=== PATIENT | female | born 2005 | race Caucasian/White ===

== ENCOUNTER 2025-01-09 00:22 | Emergency (ER) | payer OTHER, SELFPAY ==
--- NOTE | 2025-01-09 00:42 | DI.RAD.S_ITS ---
PROCEDURE: XR ANKLE LT MIN 3V INDICATIONS: twisted ankle with swelling and bruising TECHNIQUE: 3 views of the ankle were acquired. COMPARISON: None. FINDINGS: Bones: No acute fractures or dislocations. Ankle mortise is normally aligned. No suspicious bony lesions. Soft tissues: Soft tissue edema surrounding the ankle. IMPRESSION: No acute osseous abnormality. If there is continued clinical concern or persistent symptoms, repeat radiographs or cross-sectional imaging (e.g. CT, MRI) may be helpful for further evaluation. Approved by: Ad Augustin M.D. on 01/09/2025 at 1:19
[2025-01-09 00:43] VITALS: BP 158/65; PULSE 95; RESP 16; TEMP 36.8; O2SAT 100; BMI 25.0
[2025-01-09 00:50] VITALS: PULSE 124; O2SAT 99
[2025-01-09 01:00] VITALS: PULSE 96; O2SAT 100
--- NOTE | 2025-01-09 01:12 | ED.LOWEXIN ---
HPI - Extremity Injury (Lower) General Chief Complaint: Extremity Injury, Lower Stated Complaint: L Ankle Injury Time Seen by Provider: 01/09/25 00:59 Source: patient Mode of arrival: Ambulatory History of Present Illness HPI Narrative: 19-year-old female injured her left ankle playing volleyball yesterday, has been using crutches, police up like brace, still having pain and swelling, was concerned about possible fracture, requesting imaging. No other injuries recalled. No previous left ankle injuries or surgeries. Related Data Allergies Allergy/AdvReac Type Severity Reaction Status Date / Time No Known Drug Allergies Allergy Verified 01/09/25 00:43 Patient History Smoking Status: Current every day smoker tobacco type: vaping Exam Narrative Exam Narrative: HEAD: Atraumatic. Normocephalic. EYES: Pupils equal round, conjugate gaze, white sclerae. ENT: No obvious anterior facial injuries NECK: Trachea midline. Moves neck well, normal phonation EXTREMITIES: Swelling with tenderness bilateral ankle, without gross deformity, some dependent ecchymoses medial and lateral toward the heel edge both sides. Good DP pulse. BACK: Nontender without deformity or crepitance. No flank tenderness. NEURO: AOx3. Motor functions grossly nonfocal. SKIN: No rash or erythema of visible areas Initial Vital Signs Initial Vital Signs: Vital Signs Temperature 98.2 F 01/09/25 00:43 Pulse Rate 95 H 01/09/25 00:43 Respiratory Rate 16 01/09/25 00:43 Blood Pressure 158/65 H 01/09/25 00:43 Pulse Oximetry 100 01/09/25 00:43 Oxygen Delivery Method Room Air 01/09/25 00:43 Course Orders Ordered: ED Orders 01/09/25 00:42 XR ankle LT min 3V Stat Vital Signs Vital signs: Vital Signs - 8 hr 01/09/25 00:43 01/09/25 00:50 01/09/25 01:00 Temperature 98.2 F Pulse Rate 95 H 124 H 96 H Respiratory Rate 16 Blood Pressure 158/65 H Pulse Oximetry 100 99 100 Oxygen Delivery Method Room Air 01/09/25 01:30 Temperature Pulse Rate 84 Respiratory Rate Blood Pressure Pulse Oximetry 100 Oxygen Delivery Method MDM - Extremity Injury (Lower) Imaging Data Extremity x-ray #1: Radiologist's Impression: [address] [address] XRay Report Signed Patient: Jenny Wilhelm MR#: [id number] : 2005 Acct:[id number] Age/Sex: 19 / F Date of Service: 01/09/25 Loc: ED Accession Number: [id number] Procedure: XR ankle LT min 3V Ordering Provider: Allen Turcios MD PROCEDURE: XR ANKLE LT MIN 3V INDICATIONS: twisted ankle with swelling and bruising TECHNIQUE: 3 views of the ankle were acquired. COMPARISON: None. FINDINGS: Bones: No acute fractures or dislocations. Ankle mortise is normally aligned. No suspicious bony lesions. Soft tissues: Soft tissue edema surrounding the ankle. IMPRESSION: No acute osseous abnormality. If there is continued clinical concern or persistent symptoms, repeat radiographs or cross-sectional imaging (e.g. CT, MRI) may be helpful for further evaluation. Approved by: Ad Augustin M.D. on 01/09/2025 at 1:19 MDM Narrative Medical decision making narrative: Follow up all injury left ankle pain and swelling with ecchymoses toward the heel. X-ray series left ankle from triage showed no obvious fracture, see radiology report. Copy of the report given to patient. Patient has been using crutches and lace-up ankle support device. Jimmy wrap applied, with walking boot additional support immobilization. Continue nonweightbearing with use of crutches advised. [place], given contact information for office of Dr. Anderson orthopedic surgery. Advised use [id number] NSAIDs as needed. Rest ice elevation and compression. Return precautions discussed. Discharged home with friends. Discharge Plan Departure Patient Disposition: Home Clinical Impression: Ankle sprain and strain Instructions: DI for Ankle Sprain Activity Restrictions/Additional Instructions: Ankle injury playing volleyball, with swelling and some bruising. X-rays without obvious fracture. Lace-up support had been use, with crutches. Continue crutches and nonweightbearing for now. We will apply Jimmy wrap for compression, and then immobilized further in walking boot for now. Do not walk on the walking boot at this time. Recheck with your regular providers in next couple of days, hopefully swelling would be going down, to see if you can be assessed for weight-bearing activities as tolerated at that time. Do not place weight on your left ankle until recheck/clearance, re-evaluate in clinic setting in 2 days to see if any weight-bearing activity is appropriate at that time. Contact information also provided for orthopedic surgery Dr. Anderson, if you choose to have orthopedic surgery follow up. Call her office on Friday for follow up if he chooses to follow up with Orthopedic surgery. Referrals: Portia Anderson MD [Physician] - Stand Alone Forms: Patient Portal/API/Survey, Work Release Note
[2025-01-09 01:30] VITALS: PULSE 84; O2SAT 100
== END 2025-01-09 02:02 | disposition home or self-care (01) ==
PROVIDERS: Emergency Provider Emergency Medicine
DX: S93.402A Sprain of unspecified ligament of left ankle, initial encounter (principal); X58.XXXA Exposure to other specified factors, initial encounter; Y93.68 Activity, volleyball (beach) (court)
CPT/HCPCS: 29580; 73610; 99281; 99283

== ENCOUNTER 2025-06-26 18:52 | Emergency (ER) | payer OTHER, SELFPAY ==
[2025-06-26] VITALS (9 sets, daily range): BP systolic 102–116; BP diastolic 50–101; PULSE 57–77; RESP 16–17; TEMP 36.6; O2SAT 98–100; BMI 25.0
--- NOTE | 2025-06-26 21:29 | DI.CT.S_ITS ---
PROCEDURE: CT ABDOMEN PELVIS W CON INDICATIONS: right lower abdominal pain TECHNIQUE: After the administration of intravenous contrast, axial sections acquired from the lung bases to the pubic symphysis. Coronal and sagittal reformats were performed. For radiation dose reduction, the following was used: automated exposure control, adjustment of mA and/or kV according to patient size. COMPARISON: None. FINDINGS: Image quality: Diagnostic. Lower Chest: No significant findings. ABDOMEN: Liver: No solid mass. Gallbladder: No radiopaque gallstones or wall thickening. Biliary ducts: No biliary dilation. Pancreas: No ductal dilation. Spleen: Size is within normal limits. Adrenal Glands: No adrenal nodules. Kidneys and Ureters: No hydronephrosis. No solid mass. No complex renal cystic lesion which requires follow up. Stomach and Bowel: Normal colonic caliber, without significant wall thickening. Normal appendix. Peritoneum: No abnormal intraperitoneal fluid. No free air. Ventral Wall: No significant ventral hernia. Abdominal Nodes: No retroperitoneal or mesenteric adenopathy by size criteria. Vessels: Aorta and inferior vena cava are normal in size. PELVIS: Pelvic Organs: Ring-like structure in the vagina presumably female condom, diaphragm or pesary. Trace free fluid in the pelvis. Arcuate appearance of the uterus. Bladder: No bladder wall thickening, accounting for underdistention. Pelvic Nodes: No enlarged lymph nodes. Miscellaneous: No inguinal hernias are seen. Bones: No aggressive osseous abnormality. IMPRESSION: No acute abnormality. Possible arcuate uterus. Dictated by: Nasim Rocha M.D. on 06/26/2025 at 23:10 Approved by: Nasim Rocha M.D. on 06/26/2025 at 23:16
--- NOTE | 2025-06-26 21:30 | ED_ITS ---
HPI - Abdominal Pain General Chief Complaint: Abdominal Pain Stated Complaint: abd pain right side Time Seen by Provider: 06/26/25 21:28 Source: patient Mode of arrival: Ambulatory History of Present Illness HPI narrative: 20-year-old female with no prior abdominal surgery presents with sudden right lower quadrant abdominal pain while playing some volleyball earlier today. The pain was persistent but now has down to about a 4/10. She denies any nausea vomiting or any other symptoms along with this pain. She claims that she has felt a similar type of pain in the past but has never been worked up for this pain. No fever no chills. Related Data Allergies Allergy/AdvReac Type Severity Reaction Status Date / Time No Known Drug Allergies Allergy Verified 01/09/25 00:43 Review of Systems Review of Systems ROS Unobtainable: All systems reviewed & are unremarkable except as noted in HPI and below Patient History tobacco type: vaping Exam Narrative Exam Narrative: General: Patient appears to be in no acute distress, acting appropriately Head: normocephalic, atraumatic, HEENT: Pupils equal round reactive, eyes tracking well, neck supple, no JVD Heart: regular rate and rhythm, no murmurs, rubs, or gallops heard Lungs: clear to auscultation, no adventitious sounds Abdomen: soft , mildly tender to palpation in right lower quadrant, nondistended, positive bowel sounds Neurological: no focal neurological signs, moving all extremities well, alert and oriented x3, Psych: good judgment ,good insight, mood is normal. Initial Vital Signs Initial Vital Signs: Vital Signs Temperature 98 F 06/26/25 19:02 Pulse Rate 77 06/26/25 19:02 Respiratory Rate 16 06/26/25 19:02 Blood Pressure 115/53 L 06/26/25 19:02 Pulse Oximetry 98 06/26/25 19:02 Oxygen Delivery Method Room Air 06/26/25 19:02 Course Orders Ordered: ED Orders 06/26/25 21:29 CT abdomen pelvis w con Stat 06/26/25 21:40 Complete Blood Count AUTO DIFF Stat Comprehensive Metabolic Panel Stat Lipase Stat Discontinued Medications Sodium Chloride (Normal Saline 0.9%) 1,000 mls @ 1,000 mls/hr IV BOLUS ONE Stop: 06/26/25 23:29 Last Infusion: 06/26/25 23:38 Dose: Infused Documented By: Admin: 06/26/25 22:36 Dose: 1,000 mls/hr Documented By: KRISTOPHER Ondansetron HCl (Ondansetron 4 Mg/2 Ml Inj) 4 mg IV NOW PRN PRN Reason: Nausea And Vomiting Ondansetron HCl (Ondansetron 4 Mg Odt) 4 mg PO NOW PRN PRN Reason: Nausea And Vomiting Reevaluation(s) Reevaluation #1: Upon re-evaluation, patient's pain has subsided some but is still present in her right lower pelvic region. Patient's CT of her abdomen and pelvis were negative for any acute issues. Vital Signs Vital signs: Vital Signs - 8 hr 06/26/25 19:02 06/26/25 21:39 06/26/25 21:59 Temperature 98 F Pulse Rate 77 60 Respiratory Rate 16 17 Blood Pressure 115/53 L 116/101 H Pulse Oximetry 98 100 Oxygen Delivery Method Room Air Room Air 06/26/25 21:59 06/26/25 22:00 06/26/25 22:01 Temperature Pulse Rate 65 67 Respiratory Rate 16 Blood Pressure 105/50 L Pulse Oximetry 100 100 Oxygen Delivery Method 06/26/25 22:01 06/26/25 22:30 06/26/25 22:31 Temperature Pulse Rate 67 57 L 57 L Respiratory Rate 17 Blood Pressure Pulse Oximetry 100 98 99 Oxygen Delivery Method Room Air Room Air 06/26/25 22:31 06/26/25 23:00 06/26/25 23:00 Temperature Pulse Rate 73 Respiratory Rate Blood Pressure 104/59 L 109/59 L Pulse Oximetry 100 Oxygen Delivery Method 06/26/25 23:30 06/26/25 23:30 Temperature Pulse Rate 75 Respiratory Rate 16 Blood Pressure 102/58 L Pulse Oximetry 99 Oxygen Delivery Method Room Air MDM - Abdominal Pain Lab Data 06/26/25 21:40 06/26/25 21:40 Labs: Lab Results 06/26/25 Range/Units 21:40 WBC 7.5 (4.5-11.0) X10^3/uL RBC 4.32 (4.0-5.2) X10^6/uL Hgb 12.0 (12.0-16.0) g/dL Hct 35.8 L (36-46) % MCV 82.9 (80-100) fL MCH 27.9 (26-34) PG MCHC 33.6 (30-36) % RDW 13.6 (11.6-14.8) % Plt Count 256 (150-400) X10^3/uL Neut % (Auto) 53.8 (50-75) % Lymph % (Auto) 37.5 (25-40) % [place] % (Auto) 6.4 (3-14) % Eos % (Auto) 1.8 L (2-4) % Baso % (Auto) 0.5 (0-2) % Neut # (Auto) 4000 (9983-2639) /uL Lymph # (Auto) 2800 (7579-9222) /uL [place] # (Auto) 500 (0-900) /uL Eos # (Auto) 100 (0-450) /uL Baso # (Auto) 0 (0-100) /uL Sodium 134 L (137-145) mmol/L Potassium 4.1 (3.4-5.1) mmol/L Chloride 105 (98-107) mmol/L Carbon Dioxide 22 (22-32) mmol/L BUN 21 H (7-17) mg/dL Creatinine 0.89 (0.52-1.04) mg/dL Estimated GFR > 60 (>60) mL/min BUN/Creatinine Ratio 23.6 H (6-22) Glucose 87 (70-99) mg/dL Calcium 9.3 (8.4-10.2) mg/dL Total Bilirubin 0.4 (0.2-1.3) mg/dL AST 34 (14-36) IU/L ALT 24 (<35) IU/L Alkaline Phosphatase 73 (38-126) U/L Total Protein 7.4 (6.3-8.2) g/dL Albumin 4.4 (3.5-5.0) g/dL Globulin 3.0 (1.7-4.1) g/dL Albumin/Globulin Ratio 1.5 (1.0-2.8) Lipase 46 (23-300) U/L Point of care testing: Point of Care Testing Test Results Negative Urine Dip Bedside Urine Glucose Negative Bedside Urine Bilirubin - Negative Bedside Urine Ketone - Negative Urine Specific [place] 1.015 Bedside Urine Occult Blood - Negative Bedside Urine pH 6.0 Bedside Urine Protein +/- 15 Bedside Urine Urobilinogen - Negative Bedside Urine Nitrite - Negative Bedside Urine Leukocytes - Negative Esterase Imaging Data CT scan - abdomen/pelvis: Radiologist's Impression: No acute abnormality. Possible arcuate uterus. MDM Narrative Medical decision making narrative: 20-year-old female presents with right lower pelvic region pain. No acute abnormality seen in the CT of her abdomen pelvis. Labs were unremarkable. Unclear if etiology. Potentially could be ovarian cyst or other issue. Advised to follow up with Ob for further evaluation or can come back to ER having worsening symptoms. Discharge Plan Departure Patient Disposition: Home Clinical Impression: Abdominal pain, right lower quadrant Instructions: DI for Abdominal Pain-Adult Activity Restrictions/Additional Instructions: Make sure you stay well hydrated. OB information given for further evaluation of right lower pelvic pain. Today's examination did not show anything acute. Follow up if abdominal pain worsens or resumes. Referrals: Filemon Ty MD [Physician, Family Practice] Stand Alone Forms: Patient Portal/API
[2025-06-26 21:50] LABS: Hematocrit 35.8 % (36-46); Hemoglobin 12.0 g/dL (12.0-16.0); Mean Corpuscular HGB Conc 33.6 % (30-36); Mean Corpuscular Volume 82.9 fL (80-100); Platelet Count 256 X10^3/uL (150-400)
[2025-06-26 21:54] LABS: Add Manual Diff / Slide Review NO; Lymphocytes Absolute Auto 2800 /uL (1100-4500); Mean Corpuscular Hemoglobin 27.9 PG (26-34)
[2025-06-26 22:00] LABS: Alanine Aminotransferase 24 IU/L (<35); Albumin 4.4 g/dL (3.5-5.0); Albumin Globulin Ratio 1.5 (1.0-2.8); Alkaline Phosphatase 73 U/L (38-126); Blood Urea Nitrogen 21 mg/dL (7-17); Calcium 9.3 mg/dL (8.4-10.2); Carbon Dioxide 22 mmol/L (22-32); Chloride 105 mmol/L (98-107); Estimated Glomerular Filt Rate > 60 mL/min (>60); Globulin 3.0 g/dL (1.7-4.1); Glucose 87 mg/dL (70-99); HEMOLYSIS 20 (0-50); Lipase 46 U/L (23-300); Potassium 4.1 mmol/L (3.4-5.1); Sodium 134 mmol/L (137-145); Total Protein 7.4 g/dL (6.3-8.2)
[2025-06-26] MEDS: SODIUM CHLORIDE 0.9% 1,000 ML 1000 ML IV (22:36)
== END 2025-06-27 00:08 | disposition home or self-care (01) ==
PROVIDERS: Emergency Provider Family Medicine
DX: R10.31 Right lower quadrant pain (principal)
CPT/HCPCS: 36415; 74177; 80053; 81003; 81025; 83690; 85025; 96360; 99284; J7030; Q9967